=== PATIENT | male | born 1940 | race Two or more races ===

== ENCOUNTER → 2025-11-09 | Emergency (ER) | payer OTHER ==
[~2025-11-09] VITALS: Ht 160 cm; Wt 68.0 kg
[~2025-11-09] MED LIST: ACETAMINOPHEN500 M1 PO; GILTUSS DIABET118 ML PO; GUAIFENESIN/DEXTROMETHORPHAN 100MG/10ML BLIST.PACK PO ONE; OSEL75CA PO; OSELTAMIVIR PHOSPHATE 75 MG CAPSULE PO ONE; SALINE MIST45 ML
[2025-11-09 17:43] LABS: BASO % 0.1 % (0.1-1.2); EOS # 0.00 (0.04-0.54); EOS % 0.0 % (0.7-7.0); LYMPH # 0.66 (1.18-3.74); LYMPH % 7.7 % (19.3-53.1); MEAN PLATELET VOLUME 11.10 fl (9.4-12.4); MONO # 0.62 (0.24-0.82); MONO % 7.2 % (4.7-12.5); NEUT # 7.24 (1.56-6.13); NEUT % 84.6 % (34.0-71.1); RED CELL DISTRIBUTION WIDTH 13.6 % (11.6-14.4)
[2025-11-09 17:54] LABS: COVID-19 AG NEGATIVE (NEGATIVE)
== END | disposition home or self-care (01) ==
LOC: ER 13:38
PROVIDERS: Preventive Medicine Public Health & General Preventive Medicine
DX: J10.1 Influenza due to other identified influenza virus with other respiratory manifestations (principal); R05.8 Other specified cough; Z20.822 Contact with and (suspected) exposure to COVID-19